=== PATIENT | female | born 1940 | race Caucasian/White ===

== ENCOUNTER 2016-12-16 21:35 | Inpatient (IN) | payer MEDICARE ==
[2016-12-17] MEDS ORDERED: Sodium Chloride 0.9% 1,000 ML IV SCH ×2 (00:56→02:30)
[2016-12-17] MEDS ORDERED: Ondansetron ODT 4 MG TAB SL PRN (00:56)
[2016-12-17] MEDS ORDERED: Ondansetron HCl/PF 4 MG/2 ML Vial IVP PRN (00:56)
[2016-12-17 01:01] VITALS: BMI 33.0
[2016-12-17] MEDS ORDERED: Acetaminophen 325 MG TAB PO PRN (02:21)
[2016-12-17] MEDS ORDERED: Ondansetron ODT 4 MG TAB PO PRN (02:21)
[2016-12-17] MEDS: Sodium Chloride 0.9% 1,000 ML IV SCH ×2 (02:42→13:20)
[2016-12-17] MEDS ORDERED: Milk Of Magnesia 30 ML UDCUP PO PRN (02:56)
[2016-12-17] MEDS ORDERED: diphenhydrAMINE 25 MG CAP PO PRN (02:56)
[2016-12-17] MEDS ORDERED: Oxybutynin ER 5 MG TAB PO PRN (03:07)
[2016-12-17 05:14] LABS: #Eosinphils 0.1 thou/uL (0.0-0.7); #Lymphocytes 1.5 thou/uL (1.20-3.40); #Monocytes 0.8 thou/uL (0.11-0.59); #Neutrophils 4.4 thou/uL (1.40-6.50); %Basophils 0.4 % (0.0-1.0); %Eosinophils 0.9 % (0.0-10.0); %Lymphocytes 22.6 % (21.0-51.0); %Monocytes 11.7 % (0.0-10.0); Hematocrit 35.7 % (36.0-47.0); Mean Platelet Volume 7.6 fL (7.4-10.4); Red Blood Cell (RBC) Count 3.93 mill/uL (4.20-5.40); White Blood Cell (WBC) Count 6.8 thou/uL (4.8-10.8)
[2016-12-17 05:40] LABS: Anion Gap 12 mmol/L (10-20); BUN (Urea Nitrogen) 9 mg/dL (9.8-20.1); Calc. Creatinine Clearance 86 mL/min (70-130); Calcium 8.8 mg/dL (7.8-10.44); Carbon Dioxide 22 mmol/L (23-31); Chloride 107 mmol/L (98-107); Estimated GFR-MDRD 90
[2016-12-17] MEDS ORDERED: Cipro 250 MG TAB PO SCH (06:00)
[2016-12-17] MEDS ORDERED: metroNIDAZOLE 500 MG in Premix Bag 1 BAG IVPB SCH (06:00)
[2016-12-17] MEDS ORDERED: metroNIDAZOLE 500 MG TAB PO SCH (09:00)
[2016-12-17] MEDS ORDERED: Oxybutynin ER 5 MG TAB PO SCH (09:00)
[2016-12-17] MEDS ORDERED: Aspirin 81 mg Enteric Coated Tablet PO SCH (09:00)
[2016-12-17] MEDS ORDERED: Famotidine/PF 20 mg/2ml Vial SLOW IVP SCH (09:00)
[2016-12-17] MEDS ORDERED: Amlodipine 5 mg/Benazepril 10 mg CAP PO SCH (09:00)
[2016-12-17] MEDS ORDERED: hydrALAZINE 25 MG TAB PO SCH (09:00)
[2016-12-17] MEDS ORDERED: Clopidogrel Bisulfate 75 MG TAB PO SCH (09:00)
[2016-12-17] MEDS ORDERED: FLU VACC TS2017-18 (>65YR) 0.5 ML SYRINGE IM ONE (09:00)
[2016-12-17] MEDS ORDERED: Triamterene/Hydrochlorothiazide 37.5 mg/25 mg Tablet PO SCH (09:00)
[2016-12-17 12:16] VITALS: BP 127/67; TEMP 97.9
--- NOTE | 2016-12-17 16:27 | DIS-2 ---
DATE OF ADMISSION: 12/16/2016 DATE OF DISCHARGE: 12/17/2016 ADMITTING RESIDENT: Rober Rodriguez DO DISCHARGE RESIDENT: Rosamaria Ortiz MD ADMITTING ATTENDING: Shaniqua Modi M.D. DISCHARGE ATTENDING: Shaniqua Modi M.D. CONSULTATIONS: None. PROCEDURES: None. PRIMARY DIAGNOSIS: Acute sigmoid diverticulitis. SECONDARY DIAGNOSES: 1. Hypertension. 2. Coronary artery disease status post 1 stent. 3. Osteoarthritis. 4. Peptic ulcer disease. DISCHARGE MEDICATIONS: 1. Amlodipine/benazepril 10 mg-20 mg 1 cap p.o. daily. 2. Aspirin 81 mg p.o. daily. 3. Atenolol 50 mg p.o. at bedtime. 4. Plavix 75 mg p.o. daily. 5. Oxybutynin ER 5 mg p.o. daily. 6. Esomeprazole 40 mg p.o. daily. 7. Triamterene/hydrochlorothiazide 37.5 mg-25 mg 1 cap p.o. daily. 8. Venlafaxine XR 75 mg p.o. at bedtime. 9. Hydralazine 25 mg p.o. t.i.d. 10. Ciprofloxacin 500 mg p.o. q. 12 hours for 7 days. 11. Diclofenac 50 mg p.o. daily. 12. Docusate 100 mg p.o. daily. 13. Fluticasone propionate 1 spray in each naris daily. 14. Hydraflexin 1 tab p.o. daily. 15. Magnesium hydroxide 400 mg p.o. p.r.n. 16. Benadryl 25 mg p.o. q.6 h. 17. Metronidazole 500 mg p.o. q.8 h. for 7 days. DISCONTINUED MEDICATIONS: None. HISTORY OF PRESENT ILLNESS AND HOSPITAL COURSE: This is a 76-year-old female who was admitted for acute sigmoid diverticulitis that was found on CT scan with no evidence of abscess. The patient was afebrile with no elevated white blood cell count and no signs of sepsis. She was started on fluids and clear liquids as well as Cipro and Flagyl and the patient responded very well to this. She was transferred from the [place] ED and admitted to our hospital and by the next morning, her pain had improved significantly and she was able to tolerate p.o. The patient was transitioned to p.o. antibiotics and discharged home with close outpatient followup. DISPOSITION: Stable. DISCHARGE INSTRUCTIONS: 1. Location: Home. 2. Diet: Advance as tolerated. 3. Activity: No restrictions. 4. Follow up with Dr. Velasquez within 7 days. JANELLE
--- NOTE | 2016-12-17 17:29 | ADD-HP ---
ADDENDUM DATE OF SERVICE: 12/17/2016 CHIEF COMPLAINT: Abdominal pain. HISTORY OF PRESENT ILLNESS: The patient is a 76-year-old female with past medical history of GERD, coronary artery disease, and hypertension, who presented to the [facility] ER with left lower quadrant abdominal pain for 2-3 days. The patient noted initially started after she ate. She denied nausea, vomiting, and diarrhea. The patient states that she did try over the counter N SAIDs for this pain, but it did not resolve and she presented to the ER last night. In the ER, she had a CT scan which showed sigmoid colon diverticulitis, no evidence of an abscess was noted as well as CT evidence of cholelithiasis, but no evidence of cholecystitis. The patient was started on IV Cipro and Flagyl. The patient has done quite well, this morning was sitting up on the side of her b ed and states her pain is much better and she feels breech. The patient will likely be discharged h ome with oral antibiotics. We will continue bland diet. I have reviewed Dr. Rodriguez's history and physical, and we have discussed the case together. I repea lilly pertinent portions of the history and physical and agree with his assessment and plan. Please s ee his dictation for the both history and physical, assessment and plan.
[2016-12-17] MEDS ORDERED: Venlafaxine HCl XR 75 MG CAP PO SCH (21:00)
[2016-12-17] MEDS ORDERED: Atenolol 50 MG TAB PO SCH (21:00)
--- NOTE | 2016-12-18 02:31 | HP-2 ---
DATE OF ADMISSION: 12/17/2016 DATE OF SERVICE: 12/17/2016 LOCATION: [facility] in [place], [place]. COSIGNER: Dr. Shaniqua Modi. CODE STATUS: FULL CODE. PRIMARY CARE PHYSICIAN: Out of town. ATTENDING PHYSICIAN: Dr. Shaniqua Modi. RESIDENT PHYSICIAN: Dr. Rober Rodriguez. HISTORIAN: Patient provided the history. CHIEF COMPLAINT: Abdominal pain. HISTORY OF PRESENT ILLNESS: The patient is a 76-year-old female with past medical history of hypert ension, coronary artery disease, status post stent x1, osteoarthritis and peptic ulcer disease, who presented to the ED with gradual onset lower abdominal pain. She reported sinus symptoms started We that have slowly worsened. She denies fever, chills, nausea, vomiting or diarrhea. Denies dark tarry stools. Denies hematochezia. Denies chest pain or shortness of breath. She does compla in of chronic constipation unchanged from baseline. She reports the last p.o. intake was the mornin g prior to arrival in the ED and she denies exacerbating or remitting factors. Her last colonoscopy was few years ago, which showed diverticular disease, but no evidence of acute diverticulitis and w as recommended to follow up as needed and no further scopes in the future unless needed. In the ER, the patient is given 1 liter of normal saline, Cipro IV and Flagyl IV. A CT was performed. PAST MEDICAL HISTORY: Hypertension; coronary artery disease, status post stent x1; osteoarthritis; and peptic ulcer disease. PAST SURGICAL HISTORY: The patient had a stent x1 in 2016, hemorrhoidectomy, lumpectomy x2, appende ctomy. ALLERGIES: PENICILLIN, SULFA, and BACTRIM. MEDICATIONS: Venlafaxine ER 75 mg, Plavix 75 mg, hydralazine 75 mg t.i.d., triamterene and hydrochl orothiazide 37.5/75, Benadryl 25 mg, esomeprazole 40 mg daily, amlodipine/benazepril 10/20 daily, ox ybutynin 10 mg ER daily, Colace 100 mg daily, Flonase 50 mcg daily, diclofenac 50 mg daily, atenolol 100 mg daily and aspirin 81 mg daily. FAMILY HISTORY: Positive family history of breast cancer in patient's sister; coronary artery disea se, patient's sister; prostate cancer, brother and then lymphoma both her sister and mother. SOCIAL HISTORY: Patient is a nonsmoker, nondrinker. Denies Drugs. REVIEW OF SYSTEMS: General: Patient denies fever or chills. Reports decreased p.o. intake. Denie s night sweats. ENT: Denies nasal congestion, rhinorrhea, or sore throat. Respiratory: Denies cough, congestion, shortness of breath. Cardiovascular: Denies chest pain or palpitations. Gastrointestinal: Denies nausea, vomiting, diarrhea, constipati on, and GI bleeding. Patient complains of abdominal pain. Musculoskeletal: Patient complains of s welling, unchanged from baseline. PHYSICAL EXAMINATION: VITAL SIGNS: Blood pressure 176/74, pulse 70 beats per minute, respirations 18 breaths per minute, T-max 97.9, pulse ox 97% on room air, current weight 75 kilograms. GENERAL: The patient is alert and oriented, in no acute distress. Well-developed, appropriately in teractive. EYES: Pupils are equal, round and reactive to light and accommodation. Extraocular muscles are int act. Conjunctivae within normal limits. ENT: Oropharynx within normal limits. NECK: Supple, without lymphadenopathy, no thyromegaly. CARDIOVASCULAR: Regular rate and rhythm. A 2-3/6 systolic ejection murmur, no gallops. Radial pul ses 2+. Pedal pulses 2+. RESPIRATORY: Normal effort, no retractions. LUNGS: Clear to auscultation bilaterally. SKIN: Warm and dry. No cyanosis. ABDOMEN: Soft, tender to palpation of the left lower quadrant and right lower quadrant as well as s uprapubic tenderness. No masses, distention or organomegaly were appreciated. Abdomen had normal t ympany. EXTREMITIES: No clubbing, no cyanosis. The patient has 1+ bilateral lower extremity pitting edema. MUSCULOSKELETAL: Structures within normal limits. Tone within normal limits. NEURO: No focal deficits. LABORATORY DATA: White blood cell 10, hemoglobin 13, hematocrit 40.4, platelets 171. Sodium 137, p otassium 4, chloride 104, bicarb 23, BUN 11, creatinine 0.79, glucose 134, calcium 9.6, total protei n 7.6, albumin 4.2, AST 20, ALT 22, alkaline phosphatase 72, total bilirubin 0.7, lactic acid 0.7. CK 64, CK-MB 1.5, troponin I less than 0.010. Urinalysis showed a moderate amount of leukocyte galo rase and 4 to 6 white blood cells, was otherwise negative. EKG showed normal sinus rhythm, left axis deviation. IMAGING: CT abdomen and pelvis showed sigmoid colon diverticulitis with area of phlegmon adjacent t o the sigmoid. ASSESSMENT AND PLAN: 1. Sigmoid diverticulitis, uncomplicated. Patient will be given IV fluid normal saline at 125 mL p er hour. Started on IV Cipro 400 mg q.12 hours, as well as Flagyl IV 500 mg t.i.d. and will be n.p. o. for now with advance her diet to clear liquids in the morning and further advancement of her diet as tolerated. 2. Hypertension. Resume home medications. 3. Coronary artery disease. Continue aspirin and Plavix. 4. Peptic ulcer disease. Patient will be placed on IV Pepcid while n.p.o. and not tolerating oral medications. Once her diet is advanced, we will switch to her regular p.o. medication. DISPOSITION AND LENGTH OF HOSPITAL STAY: Greater than or equal to 2 days. Patient is stable. Symptomatic medication will be provided. History and physical exam as well as management was discussed with Dr. Shaniqua Modi, who agrees with the above history and physical exam, assessment and plan unless otherwise noted in her addendu m
== END 2016-12-17 13:26 | disposition home or self-care (01) | DRG 392 ==
LOC: ERS 21:35 → T4-A 23:00
PROVIDERS: ADMIT Family Medicine; ATTEND Family Medicine
DX: K57.32 Diverticulitis of large intestine without perforation or abscess without bleeding (principal); K27.9 Peptic ulcer, site unspecified, unspecified as acute or chronic, without hemorrhage or perforation; I10 Essential (primary) hypertension; I25.10 Atherosclerotic heart disease of native coronary artery without angina pectoris; Z95.5 Presence of coronary angioplasty implant and graft; M19.90 Unspecified osteoarthritis, unspecified site; K59.09 Other constipation; Z88.1 Allergy status to other antibiotic agents; Z88.0 Allergy status to penicillin; Z88.2 Allergy status to sulfonamides; Z79.01 Long term (current) use of anticoagulants; Z79.82 Long term (current) use of aspirin; K21.9 Gastro-esophageal reflux disease without esophagitis; F41.9 Anxiety disorder, unspecified
CPT/HCPCS: 36415; 80048; 85025; 99285; J0744

== ENCOUNTER 2017-01-09 10:18 | Outpatient (CLI) | payer MEDICARE ==
--- NOTE | 2017-01-09 13:33 | RAD ---
FOUR VIEWS LUMBAR SPINE: 01/09/2017 HISTORY: Spinal stenosis of the lumbar region. The patient states she fell twice in her 70s. The patient has had chronic back pain for years and is now having back pain radiating into the right hip for about o ne month. FINDINGS: Based on lateral images, there do appear to be five [id number] lumbar type vertebral bodies. Ve rtebral body heights are within normal limits. There is mild narrowing of the L4-L5 intervertebral d isk space. Facet degenerative changes are seen in the lower lumbar spine. On the frontal radiograph , there is suggestion of slight left lateral subluxation of L4 on L5. There is no evidence of anter olisthesis. Dense vascular calcifications are seen in the abdominal aorta and iliac arteries. IMPRESSION: 1. Mild degenerative changes in the lumbar spine, but no fracture is present on the provided images. 2. Slight left lateral subluxation of L4 on L5. 3. Dense vascular calcifications. POS: [facility]
--- NOTE | 2017-01-09 13:33 | MRI ---
MRI LUMBAR SPINE WITHOUT CONTRAST: Date: 01/09/17 HISTORY: M48.062, spinal stenosis. Chronic back pain. COMPARISON: Lumbar spine MRI from 2014. FINDINGS: The aortic contour is nonaneurysmal. No retroperitoneal adenopathy. Visualized portions of the kidney s are unremarkable. No paraspinal musculature atrophy. Background marrow signal is normal. Levels are as follows: T12-L1: Normal disc space. No significant neural foraminal or spinal canal narrowing. L1-2: Normal disc space. No significant neural foraminal or spinal canal narrowing. L2-3: Mild degenerative disc space height loss. Circumferential disc bulge. Spinal canal is not narrowed. T here is mild bilateral neural foraminal narrowing. L3-4: Moderate degenerative disc space height loss. Circumferential disc bulge. Moderate facet arthropathy. There is moderate bilateral neural foraminal narrowing. Moderate facet arthrosis. The spinal canal i s narrowed to approximately 7.0 mm. L4-5: Moderate degenerative disc space height and circumferential disc bulge. Ligamentum flavum hypertrophy . Moderate facet arthropathy. The spinal canal measures approximately 6.0 mm. L5-S1: Mild degenerative disc space height loss. Moderate facet arthropathy. There is moderate left and mild right neural foraminal narrowing. IMPRESSION: 1. Spondylosis as described above. 2. No acute fracture or malalignment. 3. Spondylosis, worse from L3-L5. POS: [facility]
== END 2017-01-09 10:19 | disposition home or self-care (01) ==
LOC: SCSMRI 10:18
PROVIDERS: ATTEND Nurse Practitioner Family
DX: M48.062 Spinal stenosis, lumbar region with neurogenic claudication (principal); M47.896 Other spondylosis, lumbar region; M51.86 Other intervertebral disc disorders, lumbar region; M99.13 Subluxation complex (vertebral) of lumbar region
CPT/HCPCS: 72110; 72148

== ENCOUNTER 2018-06-22 11:07 | Outpatient (CLI) | payer MEDICARE ==
--- NOTE | 2018-06-22 12:08 | RAD ---
3 views lumbar spine HISTORY: Severe back pain. Lateral, flexion and extension views lumbar spine. 3 views lumbar spine demonstrate osteopenia. Athetotic calcination seen in the abdominal aorta. There is minimal anterolisthesis of L4 on L5. This does not significantly change on flexion or extens ion views. No evidence of acute fracture seen. IMPRESSION: Minimal anterolisthesis of L4 on L5. No other acute abnormality seen.
--- NOTE | 2018-06-22 13:26 | MRI ---
MRI LUMBAR SPINE: HISTORY: Neurogenic claudication. Lumbar radiculitis. Chronic back pain. COMPARISON: MRI lumbar spine, dated 01/09/2017. FINDINGS: Vertebral body heights and marrow signal are maintained. The conus medullaris ends at the L1 level. Minimal anterolisthesis of L4/L5 is again seen. The paraspinal musculature is unremarkable. There is disk desiccation in the lower lumbar spine. T12-L1: No focal disk herniation or significant neural foraminal or spinal canal stenosis is seen. L1-L2: No disk herniation, central canal stenosis, or neural foraminal stenosis. L2-L3: A broad-based disk bulge is present with mild bilateral neural foraminal stenosis. No centra l canal stenosis. L3-L4: Broad-based disk bulge with moderate bilateral facet hypertrophic changes. There is mild rig ht and moderate left neural foraminal stenosis. There is mild to moderate central canal stenosis. L4-L5: Broad-based disk bulge with bilateral facet and ligamentum flavum hypertrophy. There is mild to moderate bilateral neural foraminal stenosis and moderate to severe central canal stenosis. L5-S1: No focal disk herniation or central canal stenosis. Bilateral facet hypertrophic changes wit h mild to moderate bilateral neural foraminal stenosis. IMPRESSION: Lumbar spondylosis with multilevel neural foraminal and central canal stenosis. POS: [facility]
== END 2018-06-22 11:08 | disposition home or self-care (01) ==
LOC: SCSMRI 11:07
PROVIDERS: ATTEND Neurological Surgery
DX: M48.062 Spinal stenosis, lumbar region with neurogenic claudication (principal); M47.26 Other spondylosis with radiculopathy, lumbar region; M43.16 Spondylolisthesis, lumbar region
CPT/HCPCS: 72100; 72148

== ENCOUNTER 2018-06-28 14:44 | Observation (INO) | payer MEDICARE ==
[~2018-06-28 14:44] MED LIST: ISOVUE-370 76%-LOCM 1 ML ONE
[2018-06-28 15:34] LABS: #Lymphocytes 0.8 thou/uL (1.20-3.40); #Monocytes 0.8 thou/uL (0.11-0.59); #Neutrophils 11.6 thou/uL (1.40-6.50); %Basophils 0.2 % (0.0-1.0); %Eosinophils 0.1 % (0.0-10.0); %Lymphocytes 5.8 % (21.0-51.0); %Monocytes 5.7 % (0.0-10.0); %Neutrophils 88.1 % (42.0-75.0); Hemoglobin 13.6 g/dL (12.0-16.0); Mean Corpuscular HGB CONC 33.2 g/dL (32.0-36.0); Mean Corpuscular Hemoglobin 30.1 pg (27.0-31.0); Mean Corpuscular Volume 90.5 fL (78.0-98.0); Mean Platelet Volume 7.7 fL (7.4-10.4); Platelet Count 194 thou/uL (130-400); RBC Distribution Width 11.9 % (11.5-14.5); Red Blood Cell (RBC) Count 4.51 mill/uL (4.20-5.40); White Blood Cell (WBC) Count 13.2 thou/uL (4.8-10.8)
[2018-06-28 15:52] LABS: ALT (SGPT) 17 U/L (8-55); AST (SGOT) 21 U/L (5-34); Albumin 4.2 g/dL (3.4-4.8); Alkaline Phosphatase 61 U/L (40-150); Anion Gap 14 mmol/L (10-20); BUN (Urea Nitrogen) 18 mg/dL (9.8-20.1); Bilirubin, Total 0.6 mg/dL (0.2-1.2); Calc. Creatinine Clearance 0 mL/min (70-130); Calcium 9.9 mg/dL (7.8-10.44); Carbon Dioxide 25 mmol/L (23-31); Chloride 105 mmol/L (98-107); Estimated GFR-MDRD 61; Globulin 2.7 g/dL (2.4-3.5); Glucose 152 mg/dL (83-110); Potassium 4.4 mmol/L (3.5-5.1); Protein, Total 6.9 g/dL (6.0-8.3); Sodium 140 mmol/L (136-145)
[2018-06-28 15:54] LABS: PTT 25.1 SEC (22.9-36.1); Prothrombin Time 13.7 SEC (12.0-14.7)
--- NOTE | 2018-06-28 16:46 | CT ---
CT abdomen and pelvis with IV contrast. Oral contrast was not administered. INDICATIONS: Abdominal pain. Rectal bleeding. COMPARISON: 12/16/2016 FINDINGS: Lung bases are clear Liver, spleen, and pancreas appear unremarkable. Numerous gallstones are seen layering dependently in the gallbladder. Stomach and duodenum appear unremarkable. Adrenal glands appear normal. Kidneys appear unremarkable. Collecting structures and urinary bladder appear unremarkable. Small bowel loops are normal caliber and exhibit normal fold pattern. Appendix not identified. Right colon is nondistended poorly evaluated. There is abnormal mural thickening involving the transv erse colon and left colon with surrounding inflammatory change and indicating a diffuse colitis. There is diverticulosis of the sigmoid colon. No evidence of diverticular abscess or fluid collection . Aorta is normal caliber. No evidence of retroperitoneal or mesenteric adenopathy. A rounded low-density masslike density extending from the uterine fundus suggests an exophytic Centra l necrotic fibroid. This is a stable finding. Subcutaneous tissues, abdominal wall, and muscular structures appear unremarkable. Osseous structures appear unremarkable. IMPRESSION: 1. Diffuse mural thickening and surrounding inflammatory change involving the transverse colon and le ft colon. Findings indicate a diffuse colitis. There is diverticulosis of the sigmoid colon without evidence of diverticular abscess or extraluminal luminal gas. 2. Cholelithiasis is again noted 3. Exophytic necrotic fibroid from the uterine fundus again noted
[2018-06-28] MEDS ORDERED: metroNIDAZOLE 500 MG in Premix Bag 1 BAG IVPB SCH (17:30)
--- NOTE | 2018-06-28 19:00 | PDOC.FPRHP ---
- History of Present Illness Chief Complaint: rectal bleeding, abdominal pain History of Present Illness: This is a 77 yo F presenting to the ER with a CC of bright red blood per rectum that started earlier today. She states that the character of her stool was like "strawberry paste." She states that she has had diarrhea, but has had long standing constipation. She reports severe abdominal pain today that has been intermittent. Nothing makes it better or worse. She describes the pain as sharp and feels like "when you take too much laxative and it starts to cramp." She states that pain is diffuse and not worse in one area more than another. She reports about 3-4 episodes of nausea and vomiting throughout the day. She reports cough that is productive of green/yellow sputum for the past week. She reports fever/chills throughout the day as well. Denies any urinary complaints. No previous hx of GI issues besides chronic constipation. Patient had a colonoscopy performed about 7 yrs ago that was normal to her knowledge. Niece present at the bedside - the patient has a son who she is estranged from. She stated that she "nominates" the niece to be her MPOA. ED Course: Flagyl 500mg IV - Allergies/Adverse Reactions Allergies Allergy/AdvReac Type Severity Reaction Status Date / Time miconazole nitrate Allergy Verified 06/28/18 19:27 [From Neosporin AF] Penicillins Allergy Verified 06/28/18 19:27 Sulfa (Sulfonamide Allergy Verified 06/28/18 19:27 Antibiotics) sulfamethoxazole Allergy Verified 06/28/18 19:27 [From Bactrim] trimethoprim [From Bactrim] Allergy Verified 06/28/18 19:27 - Home Medications Medication Instructions Recorded Confirmed Type Amlodipine Besylate/Benazepril 1 cap PO DAILY 11/11/13 06/28/18 History [amLODIPine Besylate/Benazepril] Atenolol 50 mg PO DAILY 11/11/13 06/28/18 History Clopidogrel Bisulfate [Plavix] 75 mg PO DAILY 11/11/13 06/28/18 History Esomeprazole Magnesium [NexIUM] 40 mg PO DAILY 11/11/13 06/28/18 History hydrALAZINE HCl 25 mg PO BID 11/11/13 06/28/[address] [Voltaren] 50 mg PO DAILY 12/17/16 06/28/18 History Oxybutynin ER [Ditropan XL] 10 mg PO DAILY 12/17/16 06/28/18 History Triamterene/Hydrochlorothiazid 1 cap PO DAILY PRN 12/17/16 06/28/18 History [Triamterene-Hctz 37.5-25 mg Cp] diphenhydrAMINE [Benadryl] 25 mg PO Q6HR PRN 12/17/16 06/28/18 History Famotidine 40 mg PO DAILY 06/28/18 06/28/18 History Simvastatin [Zocor] 20 mg PO QPM 06/28/18 06/28/18 History Dicyclomine [Bentyl] 10 mg PO Q6H PRN #60 cap 07/01/18 Rx - History PMHx: HTN, HLD, arthritis, b/l hearing aids, CAD s/p stent, GERD, "heart arrythmia" - she states possibly atrial flutter PSHx: stent placement about 3 yrs ago (1), carpal tunnel surgery on left, appendectomy FHx: Mother of IA, father - cancer (unknown), sister - throat cancer Social: former smoker - quit over 30 yrs ago, smoked about 1/2pack/day for 10- 15 yrs; occasional alcohol use, denies drug use - Review of Systems General: reports: fever/chills, weight/appetite/sleep changes, fatigue ENT: denies: nasal congestion, rhinorrhea Respiratory: reports: cough. denies: congestion, shortness of breath Cardiovascular: denies: chest pain, palpitation, edema Gastrointestinal: reports: nausea, vomiting, diarrhea, constipation, abdominal pain, GI bleeding Genitourinary: denies: dysuria Skin: denies: rashes, lesions, itching Musculoskeletal: denies: pain, tenderness, stiffness, swelling Neurological: reports: weakness. denies: numbness Psychological: reports: anxiety, depression - Vital signs BP: 172/89, Pulse: 68, Resp: 18, Temp: 97.9 (Oral), Pain: 9, O2 sat: 97 on Room Air, Time: 06/28/2018 14:49 WEIGHT: 73kg BP: 174/70, Pulse: 74, Resp: 20, Temp: 98.6 (Oral), Pain: 8, O2 sat: 95 on Room Air, Time: 06/28/2018 18:00. - Physical Exam Constitutional: NAD, awake, alert and oriented, well developed HEENT: normocephalic and atraumatic, PERRLA, EOMI, grossly normal vision, grossly normal hearing, good dention -HEENT: dry MM Neck: supple, FROM, trachea midline Chest: no-tender to palpation, no lesions Heart: RRR, normal S1/S2, no murmurs/rubs/gallops, pulses present Lungs: CTAB, no respiratory distress, good air movement, no wheezing Abdomen: soft -Abdomen: TTP diffusely, BS hypoactive, rebound tenderness, no peritoneal signs, guarding present Musculoskeletal: normal structure, normal tone, ROM grossly normal Neurological: no focal deficit Skin: no rash/lesions -Skin: cap refill > 2sec Heme/Lymphatic: no unusual bruising or bleeding, no purpura, no petechia Psychiatric: normal mood and affect FMR H&P: Results - Labs Result Diagrams: 07/01/18 04:43 06/29/18 04:20 Lab results: WBC 13.2 thou/uL (4.8-10.8) H 06/28/18 15:24 Hgb 13.6 g/dL (12.0-16.0) 06/28/18 15:24 Hct 40.8 % (36.0-47.0) 06/28/18 15:24 MCV 90.5 fL (78.0-98.0) 06/28/18 15:24 Plt Count 194 thou/uL (130-400) 06/28/18 15:24 Neutrophils % 88.1 % (42.0-75.0) H 06/28/18 15:24 Sodium 140 mmol/L (136-145) 06/28/18 15:23 Potassium 4.4 mmol/L (3.5-5.1) 06/28/18 15:23 Chloride 105 mmol/L (98-107) 06/28/18 15:23 Carbon Dioxide 25 mmol/L (23-31) 06/28/18 15:23 BUN 18 mg/dL (9.8-20.1) 06/28/18 15:23 Creatinine 0.89 mg/dL (0.6-1.1) 06/28/18 15:23 Glucose 152 mg/dL (83-110) H 06/28/18 15:23 Calcium 9.9 mg/dL (7.8-10.44) 06/28/18 15:23 Total Bilirubin 0.6 mg/dL (0.2-1.2) 06/28/18 15:23 AST 21 U/L (5-34) 06/28/18 15:23 ALT 17 U/L (8-55) 06/28/18 15:23 Alkaline Phosphatase 61 U/L (40-150) 06/28/18 15:23 Serum Total Protein 6.9 g/dL (6.0-8.3) 06/28/18 15:23 Albumin 4.2 g/dL (3.4-4.8) 06/28/18 15:23 - Radiology Interpretation CT scan - abdomen Status: report reviewed by me (diffuse colitis, diverticulosis of sigmoid, cholelithiasis, exophytic necrotic fibroid from uterine fundus) FMR H&P: A/P - Problem List (1) Colitis Status: Acute Code(s): K52.9 - NONINFECTIVE GASTROENTERITIS AND COLITIS, UNSPECIFIED (2) Diverticulitis Status: Chronic Code(s): K57.92 - DVTRCLI OF INTEST, PART UNSP, W/O PERF OR ABSCESS W/O BLEED (3) Hypertension Status: Chronic Code(s): I10 - ESSENTIAL (PRIMARY) HYPERTENSION (4) Hyperlipidemia Status: Chronic Code(s): E78.5 - HYPERLIPIDEMIA, UNSPECIFIED - Plan Colitis associated w/ diarrhea Patient presenting w/ 1 day of sharp abdominal pain, diarrhea, bloody BMs. CT showing diffuse colitis. - WBC 13.2, BP elevated, afebrile - CT: diffuse colitis, diverticulosis of sigmoid - Will continue flagyl, add cipro - Clear liquid and advance diet as tolerated - Stool studies pending Mild Dehydration - clinically patient has dry MM and cap refill > 2 sec - Will give mIVF HTN - home meds, PRNs available HLD - home meds GERD - home meds Dispo: admit to med obs, < 2 midnights Code: FuLL DVT ppx: SCDs GI ppx: pepcid Diet: clear liquid and advance as tolerated Case discussed with Dr. Oates FMR H&P: Upper Level - Pertinent history 77 yo WF PMH CAD, HTN, and known sigmoid diverticulosis. Present with 1 day hx lower abdominal pain, subjective fever/chills, diarrhea and BRBPR that started this morning. Denies recent travel or new foods. Unsure of urinary symptoms. Reports decreased PO intake. No recent abx. ER: Labs, CT abd/pelvis, flagyl. - Pertinent findings Vitals: BP mildly elevated, otherwise WNL GEN: mild to moderate pain. A&Ox4 ENT: Dry MM CV: RRR, no murmur Pulm: CTA-B Abd: TTP lower abdomen, rebound in RLQ, negative heel tap. labs: WBC 13.2 CT abdomen and pelvis: colitis, diverticulosis, EKG: Rate WNL, LBBB, PAC, no ST changes - Plan Date/Time: 06/28/18 185 I, Demetri Edge MD, have evaluated this patient and agree with findings/plan as outlined by legal intern resident. Pertinent changes/additions are listed here. 1. Presumed Infectious Colitis: check stool studies, since having BRBPR will empirically treat with flagyl and cipro and adjust coverage once resulted. IV LR at 125 mL/hr. PRN pain medications available. 2. LBBB: Cath in 2013 show occlusion that was unable to be stented. I assume this is an old issue but will have nursing get prior EKG to compare. 3. Chronic problems per legal intern note Diet: Clear liquid and advance as tolerated. CODE: FULL PPx: SCD Dispo: Obs, Medical, <[address] Oates. Addendum - Attending - Attending Attestation Date/Time: 07/02/18 0805 I personally evaluated the patient and discussed the management with Dr. Delgado on day of admission. I agree with the History, Examination, Assessment and Plan documented above with any addition or exceptions noted below.
[2018-06-28] MEDS ORDERED: Acetaminophen 325 MG TAB PO PRN (19:14)
[2018-06-28] MEDS ORDERED: Ondansetron PF 4 MG/2 ML Vial IVP PRN (19:14)
[2018-06-28] MEDS ORDERED: Ondansetron ODT 4 MG TAB PO PRN (19:14)
[2018-06-28 19:46] VITALS: BMI 32.7
[2018-06-28] MEDS ORDERED: diphenhydrAMINE 25 MG CAP PO PRN (20:08)
[2018-06-28] MEDS: Lactated Ringer's 1,000 ML IV SCH (20:16)
[2018-06-28] MEDS ORDERED: traMADol HCl 50 MG TAB PO PRN (20:17)
[2018-06-28] MEDS: Simvastatin 20 MG TAB PO SCH (22:15)
[2018-06-28] MEDS: hydrALAZINE 25 MG TAB PO SCH (22:15)
[2018-06-28] MEDS ORDERED: hydrALAZINE 20 MG/ML VIAL SLOW IVP PRN (22:15)
[2018-06-28] MEDS: Mirtazapine 30 MG Soltab PO SCH (22:15)
[2018-06-28 22:37] LABS: Bilirubin Negative (Negative); Blood, Urine Negative (Negative); Clarity CLEAR (Clear); Glucose, Urine (Dipstick) Negative (Negative); Leukocyte Negative (Negative); Nitrite Negative (Negative); Protein, Urine (Dipstick) 30 mg/dL (Neg-Trace); Urobilinogen 0.2 mg/dL (0.2-1.0)
[2018-06-28 22:42] LABS: Bacteria/HPF None Seen HPF (None Seen); Hyaline Casts/LPF 0-3 HYALINE CAST LPF (0-3 Hyaline); Pathc Cast-AUWi Flag 0.27 (0-2.49)
[2018-06-28 22:43] LABS: Specific Gravity, Urine Greater than 1.060 (1.002-1.036)
[2018-06-29] MEDS ORDERED: metroNIDAZOLE 250 MG in Admixture Fee 2 EACH IVPB SCH (01:30)
[2018-06-29] MEDS ORDERED: metroNIDAZOLE 250 MG TAB PO SCH ×2 (01:30→09:00)
[2018-06-29] MEDS: metroNIDAZOLE 250 MG in Admixture Fee 1 EACH IVPB SCH ×3 (02:10→17:17)
[2018-06-29 05:43] LABS: #Lymphocytes 1.3 thou/uL (1.20-3.40); #Monocytes 1.1 thou/uL (0.11-0.59); #Neutrophils 10.5 thou/uL (1.40-6.50); %Basophils 0.1 % (0.0-1.0); %Eosinophils 0.1 % (0.0-10.0); %Lymphocytes 9.7 % (21.0-51.0); %Monocytes 8.8 % (0.0-10.0); %Neutrophils 81.3 % (42.0-75.0); Hemoglobin 11.9 g/dL (12.0-16.0); Mean Corpuscular HGB CONC 33.2 g/dL (32.0-36.0); Mean Corpuscular Hemoglobin 30.5 pg (27.0-31.0); Mean Corpuscular Volume 91.7 fL (78.0-98.0); Mean Platelet Volume 8.2 fL (7.4-10.4); Platelet Count 163 thou/uL (130-400); RBC Distribution Width 12.1 % (11.5-14.5); White Blood Cell (WBC) Count 12.9 thou/uL (4.8-10.8)
[2018-06-29] MEDS: Lactated Ringer's 1,000 ML IV SCH ×2 (05:54→16:15)
[2018-06-29 06:01] LABS: Anion Gap 13 mmol/L (10-20); BUN (Urea Nitrogen) 16 mg/dL (9.8-20.1); Calc. Creatinine Clearance 75 mL/min (70-130); Calcium 9.1 mg/dL (7.8-10.44); Carbon Dioxide 23 mmol/L (23-31); Chloride 106 mmol/L (98-107); Estimated GFR-MDRD 78; Glucose 117 mg/dL (83-110); Potassium 4.2 mmol/L (3.5-5.1); Sodium 138 mmol/L (136-145)
--- NOTE | 2018-06-29 06:12 | PDOC.FM ---
- Subjective Subjective: Pt states she is doing better this morning. She has no complaints at this time. She denies CP, SOB, nausea, or diarrhea this morning. She reports 1 BM overnight. - Objective MAR Reviewed: Yes Vital Signs & Weight: Vital Signs (12 hours) Temp Pulse Resp BP BP Pulse Ox 06/29/18 04:15 98.4 F 73 16 142/67 H 93 L 06/28/18 23:25 98.4 F 53 L 16 109/51 L 92 L 06/28/18 22:15 76 06/28/18 19:07 98.0 F 76 18 176/73 H 95 Weight Weight 73.437 kg I&O: 06/27/18 06/28/18 06/29/18 06:59 06:59 06:59 Intake Total 1540 Output Total 325 Balance 1215 Result Diagrams: 06/29/18 04:20 06/29/18 04:20 Phys Exam - Physical Examination Constitutional: NAD HEENT: moist MMs Neck: no JVD, full ROM Respiratory: no wheezing, clear to auscultation bilateral Cardiovascular: RRR, no significant murmur Gastrointestinal: soft, non-tender, no distention Musculoskeletal: no edema, pulses present Neurological: moves all 4 limbs Psychiatric: A&O x 3 Skin: cap refill <2 seconds Dx/Plan (1) Colitis Code(s): K52.9 - NONINFECTIVE GASTROENTERITIS AND COLITIS, UNSPECIFIED Status : Acute (2) Hyperlipidemia Code(s): E78.5 - HYPERLIPIDEMIA, UNSPECIFIED Status: Acute (3) Hypertension Code(s): I10 - ESSENTIAL (PRIMARY) HYPERTENSION Status: Acute - Plan Plan: This is a 77 yo female with a pmh of HTN, HLD Colitis with diarrhea -CT shows diffuse colitis -Flagyl and Cipro -Pending stool studies -Advance diet -Consider DC pending clinical picture Mild dehydration -Resolved HTN -continue home meds HLD -home meds GERD -home meds Addendum - Attending - Attending Attestation Date/Time: 06/29/18 1105 I personally evaluated the patient and discussed the management with Dr. Yi. I agree with the History, Examination, Assessment and Plan documented above with any addition or exceptions noted below. Patient reports doing improved. She did have some cramping earlier before a bowel movement that has now resolved. Will advance diet and see how she tolerates. Stool studies pending, low suspicion for Cdiff since not liquid stool but that is also pending. If tolerates diet, can likely be further managed as outpatient but will re-eval this PM.
[2018-06-29] MEDS ORDERED: Famotidine 20 MG TAB PO SCH (09:00)
[2018-06-29] MEDS ORDERED: Pantoprazole 40 MG VIAL IVP SCH (09:00)
[2018-06-29] MEDS: Atenolol 25 MG TAB PO SCH (09:15)
[2018-06-29] MEDS: Diclofenac Sodium 50 MG DR TAB PO SCH (09:15)
[2018-06-29] MEDS: hydrALAZINE 25 MG TAB PO SCH ×2 (09:16→20:45)
[2018-06-29] MEDS: Amlodipine 10 MG TAB PO SCH (09:16)
[2018-06-29] MEDS: Oxybutynin ER 5 MG TAB PO SCH (09:16)
--- NOTE | 2018-06-29 14:58 | CON ---
DATE OF CONSULTATION: 06/29/2018 REASON FOR CONSULTATION: Colitis and lower GI bleeding. HISTORY OF PRESENT ILLNESS: Jacy Solomon is a very pleasant 77-year-old woman. She normally sees Dr. Orosco for GI. She reports having had a colonoscopy 5 to 7 years ago, which she believes was normal. It looks like she has a history of peptic ulcer disease with last EGD with Dr. Orosco back in 2011. She denies any chronic gastrointestinal symptoms. She was in her normal state of health until yesterday morning. At that time, she had the fairly acute onset of lower and then generalized cramping abdominal pain this started to localize more to the left side. This was followed by sudden urgent explosive watery diarrhea. The diarrhea was initially nonbloody, but after several bowel movements, she started to have red blood in the stool. After several episodes of hematochezia and overall feeling weak, she presented to the hospital and was admitted last night. The CT imaging demonstrated inflammatory changes in the transverse colon and left colon, some diverticulosis with no evidence of diverticulitis in the sigmoid colon, and nondistention of the right colon. Hemoglobin declined a little bit from 13.6 on admission down to 11.9 today. She has a mild leukocytosis of 12.9. She has remained afebrile and hemodynamically stable. She was started empirically on antibiotics with IV ciprofloxacin and Flagyl. Stool studies have been ordered, but I am not sure that they have been sent. This morning, the patient has had only a single bowel movement. She reports this was more solid and still a bit reddish, but she flush it prior to stool being collected for evaluation. She is still having some cramping left-sided abdominal pain. They are trying to slowly advance her diet. Notably, the patient takes diclofenac every morning for her arthritis. She is also on some antihypertensive as an outpatient including amlodipine, hydralazine, and triamterene/hydrochlorothiazide. REVIEW OF SYSTEMS: Full review of systems including constitutional, head, eyes, ears, nose, throat, GI, , cardiovascular, respiratory, musculoskeletal, and neurologic systems are negative except as noted in the HPI. PAST MEDICAL HISTORY: Hypertension, hyperlipidemia, arthritis, bilateral hearing aids, coronary artery disease status post stent on Plavix, GERD, arrhythmia, carpal tunnel surgery on the left, appendectomy, colonoscopy 5 to 7 years ago, and peptic ulcer disease with last EGD around 2011. FAMILY HISTORY: Sister had throat cancer. Father had unknown cancer. SOCIAL HISTORY: She is a former smoker, but quit over 30 years ago. Alcohol use is occasional. No drug use. ALLERGIES: MICONAZOLE, PENICILLIN, SULFA, AND TRIMETHOPRIM. HOME MEDICATIONS: 1. Amlodipine. 2. Atenolol. 3. Plavix. 4. Nexium 40 mg daily. 5. Hydralazine. 6. Diclofenac 50 mg daily. 7. Oxybutynin. 8. Triamterene/hydrochlorothiazide. 9. Benadryl. 10. Famotidine 40 mg daily. 11. Mirtazapine. 12. Simvastatin. INPATIENT MEDICATIONS: 1. Amlodipine. 2. Atenolol. 3. Benazepril. 4. Ciprofloxacin IV. 5. Hydralazine 25 mg b.i.d. 6. Metronidazole 250 mg IV q.8 hours. 7. Remeron. 8. Oxybutynin. 9. Protonix 40 mg daily. 10. Zocor. 11. Tramadol. PHYSICAL EXAMINATION: VITAL SIGNS: Temperature 99.2, pulse 66, blood pressure 102/46, and 92% oxygen saturation on room air. GENERAL: No acute distress, lying in bed comfortably. SKIN: No jaundice. No rashes were palpable. EYES: No scleral icterus. Extraocular movements intact. ENT: Mucous membranes moist. No oral lesions. LYMPH: No submandibular or supraclavicular lymphadenopathy. Thyroid nontender to palpation. HEART: Regular rate and rhythm. LUNGS: Clear to auscultation bilaterally. ABDOMEN: Bowel sounds are present. The abdomen is soft. There is tenderness to palpation on the left side of the abdomen. No guarding or rebound tenderness. EXTREMITIES: No peripheral edema. VESSELS: Radial pulses 2+ bilaterally. NEURO: Cranial nerves 2 to 12 intact bilaterally. No focal deficits. LABORATORY STUDIES: Sodium 138, potassium 4.2, BUN 16, and creatinine 0.72. Urinalysis shows 11 to 20 wbc's. INR 1.0. WBC 12.9, hemoglobin 11.9, and platelets 163. IMAGING STUDIES: CT of the abdomen and pelvis from yesterday demonstrates diffuse mural thickening and inflammatory change involving the transverse colon in the left colon. There is diverticulosis of the sigmoid colon with no evidence of diverticulitis. She has cholelithiasis and an exophytic necrotic fibroid from the uterine fundus, which is stable from prior imaging. Normal small bowel loops. Normal stomach. She has cholelithiasis. Normal liver and spleen. ASSESSMENT AND PLAN: 1. Left-sided colitis, suspect ischemic colitis, appears to be clinically improving already. 2. Hematochezia, secondary to left-sided colitis. 3. Left-sided abdominal pain, secondary to left-sided colitis. The patient's presentation certainly seems most consistent with an episode of acute ischemic colitis. Note that, she had minimal oral intake the day before, and has risk factors of daily nonsteroidal anti-inflammatory drug use as well as antihypertensive medication use. I had a long discussion with the patient about ischemic colitis. I would expect symptoms to quickly improve and in fact resolve over the next 5 to 7 days. Agree infectious colitis is a possibility, so followup stool studies that been ordered. Agree with empiric antimicrobial treatment for now, but I think this can be discontinued on hospital discharge. If the patient is feeling up to it, she can indeed advance her diet as tolerated, and no barriers to hospital discharge once the symptoms are well controlled and she is tolerating her diet. She will need to follow up on an outpatient basis with her GI physician, Dr. Orosco, for followup colonoscopy in the next few weeks. We will not plan on any endoscopic investigations at this time. Thank you for the consultation. Please call at anytime with questions or concerns. Job ID: [id number]
[2018-06-29] MEDS: Simvastatin 20 MG TAB PO SCH (20:44)
[2018-06-29] MEDS: Dicyclomine 10 MG CAP PO PRN (20:45)
[2018-06-29] MEDS: Mirtazapine 30 MG Soltab PO SCH (20:45)
[2018-06-30] MEDS: metroNIDAZOLE 250 MG in Admixture Fee 1 EACH IVPB SCH ×3 (01:57→18:06)
[2018-06-30] MEDS: Lactated Ringer's 1,000 ML IV SCH (04:15)
--- NOTE | 2018-06-30 05:18 | PDOC.FM ---
- Subjective Subjective: Pt reports abdominal pain is improved, however she still has some abdominal pain and cramping. She tolerated 25 % full liquids yesterday. Has not had a BM since yesterday morning. - Objective Vital Signs & Weight: Vital Signs (12 hours) Temp Pulse Resp BP Pulse Ox 06/30/18 04:15 99.3 F 62 20 141/87 H 93 L 06/29/18 23:10 98.9 F 61 18 129/58 L 93 L 06/29/18 19:59 97.4 F L 60 18 146/65 H 94 L Weight Weight 73.437 kg I&O: 06/28/18 06/29/18 06/30/18 06:59 06:59 06:59 Intake Total 1540 1875 Output Total 325 1125 Balance 1215 750 Result Diagrams: 06/29/18 04:20 06/29/18 04:20 Phys Exam - Physical Examination Constitutional: NAD Respiratory: no wheezing, clear to auscultation bilateral Cardiovascular: RRR 3/6 systolic murmur Gastrointestinal: soft, positive bowel sounds diffusely tender to palpation, with some guarding Musculoskeletal: no edema, pulses present Neurological: non-focal, moves all 4 limbs Psychiatric: normal affect Skin: normal turgor Dx/Plan (1) Colitis Code(s): K52.9 - NONINFECTIVE GASTROENTERITIS AND COLITIS, UNSPECIFIED Status : Acute (2) Mild dehydration Code(s): E86.0 - DEHYDRATION Status: Acute (3) Hyperlipidemia Code(s): E78.5 - HYPERLIPIDEMIA, UNSPECIFIED Status: Chronic (4) Hypertension Code(s): I10 - ESSENTIAL (PRIMARY) HYPERTENSION Status: Chronic (5) Diverticulitis Code(s): K57.92 - DVTRCLI OF INTEST, PART UNSP, W/O PERF OR ABSCESS W/O BLEED Status: Chronic (6) GERD (gastroesophageal reflux disease) Code(s): K21.9 - GASTRO-ESOPHAGEAL REFLUX DISEASE WITHOUT ESOPHAGITIS Status: Chronic - Plan Plan: This is a 77 yo female with a PMH of HTN, HLD Colitis with diarrhea, suspected ischemic colitis -CT shows diffuse colitis -Flagyl and Cipro -Pending stool studies - not collected as patient has not had a BM since yesterday AM -Advance diet as tolerated -May discharge if patient is able to tolerate diet -Follow up for colonoscopy with Dr. Orosco outpatient Mild dehydration -Resolved HTN -continue home meds HLD -home meds GERD -home meds Addendum - Attending - Attending Attestation Date/Time: 06/30/18 8426 I personally evaluated the patient and discussed the management with Dr. Khan. I agree with the History, Examination, Assessment and Plan documented above with any addition or exceptions noted below. Patient reports feeling somewhat improved. GI evaluated yesterday and has no further interventions planned. Will see if she tolerates diet this morning and likely d/c home later today if so.
[2018-06-30] MEDS: Triamterene/Hydrochlorothiazide 37.5 mg/25 mg Tablet PO PRN (05:20)
[2018-06-30] MEDS: Diclofenac Sodium 50 MG DR TAB PO SCH (09:46)
[2018-06-30] MEDS: Atenolol 25 MG TAB PO SCH (09:47)
[2018-06-30] MEDS: Amlodipine 10 MG TAB PO SCH (09:47)
[2018-06-30] MEDS: Oxybutynin ER 5 MG TAB PO SCH (09:48)
[2018-06-30] MEDS: hydrALAZINE 25 MG TAB PO SCH (09:48)
[2018-06-30] MEDS: Dicyclomine 10 MG CAP PO PRN (09:51)
--- NOTE | 2018-06-30 19:08 | PRG ---
DATE OF SERVICE: 06/30/2018 SUBJECTIVE: Ms. Solomon is doing okay today, reports no significant change in symptoms. She still has waxing and waning abdominal pain, primarily on the left side, responsive to pain medications. She has had two bowel movements today, which both were still bloody. She is tolerating her regular low-salt diet; however. She remains clinically stable. OBJECTIVE: VITAL SIGNS: Temperature 98.5, pulse 56, blood pressure 114/52, and 92% oxygen saturation on room air. GENERAL: No acute distress. HEART: Regular rate and rhythm. LUNGS: Clear to auscultation bilaterally. ABDOMEN: Some tenderness to palpation on the left side of the abdomen as well as the right upper quadrant, but no guarding or rebound tenderness. EXTREMITIES: No peripheral edema. LABORATORY STUDIES: No new labs today. ASSESSMENT AND PLAN: 1. Left-sided colitis, still suspect ischemic colitis, clinically stable. 2. Hematochezia, not yet resolved, secondary to left-sided colitis. Overall, my impression has not changed. I still suspect this represents acute ischemic colitis. Expect continued symptomatic improvement. Symptoms usually resolve over the course of 5 to 7 days. I do note stool studies are negative for Clostridium difficile negative for Campylobacter and shiga toxin, with elevated fecal lactoferrin as suspected. Continue current supportive care for now. Antimicrobial therapy could be discontinued on hospital discharge. No barriers to hospital discharge from a GI perspective once the patient's symptoms are well controlled. Stick with the plan to follow up on an outpatient basis with her GI physician, Dr. Orosco for followup colonoscopy in the next few weeks. Job ID: [id number]
[2018-06-30] MEDS: Mirtazapine 30 MG Soltab PO SCH (20:53)
[2018-06-30] MEDS: Simvastatin 20 MG TAB PO SCH (20:53)
[2018-07-01] MEDS: hydrALAZINE 25 MG TAB PO SCH ×2 (00:49→08:25)
[2018-07-01] MEDS: metroNIDAZOLE 250 MG in Admixture Fee 1 EACH IVPB SCH (02:01)
--- NOTE | 2018-07-01 06:32 | PDOC.FM ---
- Subjective Subjective: Patient had bloody bowel movements yesterday. Reports her abdominal pain is much improved. She has been able to eat some, however she has not been enjoying her food due to the salt restricted diet. - Objective Vital Signs & Weight: Vital Signs (12 hours) Temp Pulse Resp BP Pulse Ox 07/01/18 03:00 98.4 F 60 16 143/64 H 97 07/01/18 00:49 51 L 07/01/18 00:00 98.2 F 51 L 12 124/56 L 95 06/30/18 19:48 99.4 F 57 L 12 118/56 L 93 L Weight Weight 74.843 kg I&O: 06/29/18 06/30/18 07/01/18 06:59 06:59 06:59 Intake Total 1540 3450 1655 Output Total 325 1450 1950 Balance 1215 1999 -295 Result Diagrams: 07/01/18 04:43 06/29/18 04:20 Phys Exam - Physical Examination Constitutional: NAD Respiratory: no wheezing, clear to auscultation bilateral Cardiovascular: RRR 2/6 systolic murmur Gastrointestinal: soft, no distention, positive bowel sounds minimal guarding, improved from yesterday Musculoskeletal: pulses present mild edema Neurological: non-focal, moves all 4 limbs Psychiatric: normal affect Skin: normal turgor, cap refill <2 seconds Dx/Plan (1) Colitis Code(s): K52.9 - NONINFECTIVE GASTROENTERITIS AND COLITIS, UNSPECIFIED Status : Acute (2) Mild dehydration Code(s): E86.0 - DEHYDRATION Status: Acute (3) Hyperlipidemia Code(s): E78.5 - HYPERLIPIDEMIA, UNSPECIFIED Status: Chronic (4) Hypertension Code(s): I10 - ESSENTIAL (PRIMARY) HYPERTENSION Status: Chronic (5) Diverticulitis Code(s): K57.92 - DVTRCLI OF INTEST, PART UNSP, W/O PERF OR ABSCESS W/O BLEED Status: Chronic (6) GERD (gastroesophageal reflux disease) Code(s): K21.9 - GASTRO-ESOPHAGEAL REFLUX DISEASE WITHOUT ESOPHAGITIS Status: Chronic - Plan Plan: This is a 77 yo female with a PMH of HTN, HLD Colitis with diarrhea, suspected acute ischemic colitis -Pain improved today -CT shows diffuse colitis -Flagyl and Cipro discontinued -Stool studies negative for cdif, campylobacter, shigatoxin; +blood and elevated lactoferrin -Advance diet as tolerated -Follow up for colonoscopy with Dr. Orosco outpatient Mild dehydration -Resolved HTN -continue home meds HLD -home meds GERD -home meds Dispo: plan to dc to home if able to tolerate her diet this AM Addendum - Attending - Attending Attestation Date/Time: 07/01/18 6000 I personally evaluated the patient and discussed the management with Dr. Khan. I agree with the History, Examination, Assessment and Plan documented above with any addition or exceptions noted below. Patient improved today for suspected ischemic colitis. GI has evaluated and does not see the need for more interventions. If tolerates diet well today, will d/c home with plans to follow up with GI outpt. Stool cultures negative. Blood in stool 2/2 colitis, counts stable.
[2018-07-01 06:35] LABS: #Eosinphils 0.2 thou/uL (0.0-0.7); #Lymphocytes 1.4 thou/uL (1.20-3.40); #Monocytes 0.8 thou/uL (0.11-0.59); #Neutrophils 6.4 thou/uL (1.40-6.50); %Basophils 0.4 % (0.0-1.0); %Eosinophils 2.7 % (0.0-10.0); %Lymphocytes 15.5 % (21.0-51.0); %Monocytes 9.3 % (0.0-10.0); %Neutrophils 72.1 % (42.0-75.0); Hemoglobin 10.5 g/dL (12.0-16.0); Mean Corpuscular HGB CONC 33.9 g/dL (32.0-36.0); Mean Corpuscular Hemoglobin 30.6 pg (27.0-31.0); Mean Corpuscular Volume 90.4 fL (78.0-98.0); Mean Platelet Volume 8.6 fL (7.4-10.4); Platelet Count 155 thou/uL (130-400); RBC Distribution Width 11.8 % (11.5-14.5); Red Blood Cell (RBC) Count 3.42 mill/uL (4.20-5.40); White Blood Cell (WBC) Count 8.8 thou/uL (4.8-10.8)
[2018-07-01] MEDS: Atenolol 25 MG TAB PO SCH (08:24)
[2018-07-01] MEDS: Triamterene/Hydrochlorothiazide 37.5 mg/25 mg Tablet PO PRN (08:25)
[2018-07-01] MEDS: Amlodipine 10 MG TAB PO SCH (08:25)
[2018-07-01] MEDS: Oxybutynin ER 5 MG TAB PO SCH (08:26)
[2018-07-01] MEDS: Diclofenac Sodium 50 MG DR TAB PO SCH (08:26)
[2018-07-01 08:43] VITALS: BP 122/55; TEMP 98.2
--- NOTE | 2018-07-01 10:48 | PRG ---
DATE OF SERVICE: 07/01/2018 SUBJECTIVE: Ms. Solomon says she is feeling even better today. She still has some lower abdominal discomfort. She had one bowel movement with a little bit of blood this morning, but this also seems to be clearing up. She is tolerating her regular diet well with no issues. OBJECTIVE: VITAL SIGNS: Temperature 98.2, pulse 51, blood pressure 122/55, and 95% oxygen saturation on room air. GENERAL: No acute distress. HEART: Regular rate and rhythm. LUNGS: Clear to auscultation bilaterally. ABDOMEN: Bowel sounds present. Soft. Some mild tenderness to palpation in the lower abdomen. No guarding or rebound tenderness. EXTREMITIES: No peripheral edema. LABORATORY STUDIES: WBC down to 8.8, hemoglobin 10.5, and platelets 155. ASSESSMENT AND PLAN: 1. Left-sided colitis, likely ischemic colitis, clinically improving. 2. Hematochezia, appears to be resolving, secondary to left-sided colitis. Expect continued symptomatic improvement. The patient is advancing her diet well. No barriers to hospital discharge from a GI perspective. Stick with the plan to follow up on an outpatient basis with her GI physician, Dr. Orosco, for followup colonoscopy in the next few weeks. Job ID: [id number]
--- NOTE | 2018-07-03 02:11 | DIS ---
DATE OF ADMISSION: 06/28/2018 DATE OF DISCHARGE: 07/01/2018 RESIDENT: Cece Khan MD ADMITTING ATTENDING: Silvio Oates MD DISCHARGE ATTENDING: Edy Genao MD CONSULTS: Gastroenterology, Dr. Danielle, 06/28/2018. PROCEDURES PERFORMED: Abdomen and pelvis CT, 06/28/2018. Impression: Diffuse mural thickening and surrounding inflammatory change involving the transverse colon and left colon. Findings indicate diffuse colitis. There is diverticulosis of the sigmoid colon without evidence of diverticular abscess or extraluminal gas. Cholelithiasis is again noted. Exophytic necrotic fibroid from the uterine fundus again noted. PRIMARY DIAGNOSES: 1. Acute ischemic colitis with diarrhea, improving. 2. Mild dehydration, resolved. SECONDARY DIAGNOSES: 1. Hypertension. 2. Hyperlipidemia. 3. Gastroesophageal reflux disease. DISCHARGE MEDICATIONS: 1. Bentyl 10 mg p.o. q.6 hours p.r.n. for abdominal pain or discomfort. 2. Nexium 40 mg p.o. daily. 3. Hydralazine 25 mg p.o. b.i.d. 4. Amlodipine besylate/benazepril one cap p.o. daily. 5. Atenolol 50 mg p.o. daily. 6. Clopidogrel 75 mg p.o. daily. 7. Oxybutynin 10 mg p.o. daily. 8. Voltaren 50 mg p.o. daily. 9. Triamterene hydrochlorothiazide 37.5-25 one cap p.o. p.r.n. for fluid retention. 10. Benadryl 25 mg p.o. q.6 hours p.r.n. for allergies. 11. Famotidine 40 mg p.o. daily. 12. Simvastatin 20 mg p.o. every morning. DISCONTINUED MEDICATIONS: Mirtazapine 30 mg p.o. at bedtime. HISTORY OF PRESENT ILLNESS/HOSPITAL COURSE: A 77-year-old female presented to the ER with chief complaint of bright red blood per rectum that started earlier that day. She stated that the character of her stool was like strawberry paste. She states that she had diarrhea, but has had long-standing constipation. She reported severe abdominal pain that had been intermittent. Nothing made it better or worse. She described the pain as sharp and it feels like when she takes too much laxative "it starts to cramp." She states that the pain is diffuse and not worse in one area more than another. She reports about 3 to 4 episodes of nausea and vomiting throughout the day. She reported cough that was productive of green yellow sputum for the past week. She reported fever and chills throughout the day as well. Denies any urinary complaints. No previous history of GI issues besides chronic constipation. The patient had a colonoscopy 7 years ago that was normal to her knowledge. The patient was given 500 mg of Flagyl IV in the ED. CT was done, which showed diffuse colitis. The patient was continued on Flagyl and Cipro. Stool studies were done and were negative for C diff, Campylobacter and shiga toxin. They were positive for blood and elevated lactoferrin. Dr. Danielle was consulted from GI. He evaluated the patient. It is likely a left-sided colitis, likely ischemic colitis that was clinically improving before discharge. The patient was advancing her diet well. The patient plans to follow up with her GI physician, Dr. Orosco, for followup with colonoscopy in the next few weeks. The patient's antibiotics were discontinued on discharge. The patient had mild dehydration on admission that resolved prior to discharge. The patient was continued on her home medications with hypertension, hyperlipidemia , and GERD. The patient had not been taking home mirtazapine for 1 month and was given the medication once during her hospital stay. She reports the medication made her feel weak and shaky. The medication was discontinued. DISPOSITION: Stable. DISCHARGE INSTRUCTIONS: 1. Location: Home. 2. Diet: Heart healthy. 3. Activity: As tolerated. 4. Followup: Follow up with Dr. Orosco in the next few weeks for colonoscopy. Follow up with PCP, Dr. Mando Velasquez, within 1 week. Job ID: [id number] [facility]
--- NOTE | 2018-07-04 14:40 | EKG ---
Test Reason : STAT Blood Pressure : / mmHG Vent. Rate : 078 BPM Atrial Rate : 078 BPM P-R Int : 158 ms QRS Dur : 146 ms QT Int : 420 ms P-R-T Axes : 072 -41 117 degrees QTc Int : 478 ms Sinus rhythm with Possible Premature atrial complexes with Abberant conduction Left axis deviation Left bundle branch block Abnormal ECG Confirmed by NIKHIL PATHAK ([id number]) on 07/04/2018 2:39:52 PM Referred By: PRESTON Confirmed By:NIKHIL PATHAK
== END 2018-07-01 13:51 | disposition home or self-care (01) ==
LOC: ERS 14:44 → 2SW 17:20
PROVIDERS: ADMIT Emergency Medicine; ATTEND Emergency Medicine
DX: K52.89 Other specified noninfective gastroenteritis and colitis (principal); K59.09 Other constipation; K57.30 Diverticulosis of large intestine without perforation or abscess without bleeding; K80.10 Calculus of gallbladder with chronic cholecystitis without obstruction; I10 Essential (primary) hypertension; E78.5 Hyperlipidemia, unspecified; M19.90 Unspecified osteoarthritis, unspecified site; I25.10 Atherosclerotic heart disease of native coronary artery without angina pectoris; K21.9 Gastro-esophageal reflux disease without esophagitis; E86.0 Dehydration; Z87.891 Personal history of nicotine dependence; Z88.0 Allergy status to penicillin; Z88.1 Allergy status to other antibiotic agents; Z88.5 Allergy status to narcotic agent; Z79.899 Other long term (current) drug therapy; Z97.4 Presence of external hearing-aid; Z95.5 Presence of coronary angioplasty implant and graft
CPT/HCPCS: 74177; 80048; 80053; 81001; 82274; 83630; 84145; 85025 ×3; 85610; 85730; 86850; 86900; 86901; 87015; 87045; 87046; 87206; 87324; 87449 ×2; 87899 ×2; 93005; 96361 ×3; 96365; 96366 ×3; 96367; 99285; G0378 ×3; 36415; 93010; J0744; Q0163; Q9966

== ENCOUNTER 2018-11-20 15:06 | Outpatient (CLI) | payer MEDICARE ==
[2018-11-20 16:53] LABS: Mean Corpuscular HGB CONC 34.4 g/dL (32.0-36.0); Mean Corpuscular Hemoglobin 30.3 pg (27.0-31.0); Mean Corpuscular Volume 88.2 fL (78.0-98.0); Platelet Count 164 thou/uL (130-400); RBC Distribution Width 12.2 % (11.5-14.5); White Blood Cell (WBC) Count 5.7 thou/uL (4.8-10.8)
[2018-11-20 17:18] LABS: Anion Gap 12 mmol/L (10-20); BUN (Urea Nitrogen) 18 mg/dL (9.8-20.1); Calc. Creatinine Clearance 0 mL/min (70-130); Calcium 9.3 mg/dL (7.8-10.44); Carbon Dioxide 25 mmol/L (23-31); Chloride 104 mmol/L (98-107); Estimated GFR-MDRD 60; Glucose 112 mg/dL (83-110); Potassium 4.2 mmol/L (3.5-5.1); Sodium 137 mmol/L (136-145)
--- NOTE | 2018-11-21 20:02 | EKG ---
Test Reason : Blood Pressure : / mmHG Vent. Rate : 054 BPM Atrial Rate : 054 BPM P-R Int : 188 ms QRS Dur : 156 ms QT Int : 484 ms P-R-T Axes : 078 004 098 degrees QTc Int : 458 ms Sinus bradycardia Left bundle branch block Abnormal ECG When compared with ECG of 28-JUN-2018 19:56, Abberant conduction is no longer Present Nonspecific T wave abnormality has replaced inverted T waves in Lateral leads Confirmed by MAKSIM HALEY, SEstuardo ([id number]) on 11/21/2018 8:01:57 PM Referred By: SASKIA Confirmed By:DR. Kee SCHAEFFER MD
== END 2018-11-20 15:07 | disposition home or self-care (01) ==
LOC: LABBT 15:06
PROVIDERS: ATTEND Neurological Surgery
DX: Z01.818 Encounter for other preprocedural examination (principal); M48.061 Spinal stenosis, lumbar region without neurogenic claudication
CPT/HCPCS: 80048; 85027; 93005; 93010

== ENCOUNTER 2018-11-28 05:44 | Day surgery (SDC) | payer MEDICARE ==
[2018-11-20 15:23] VITALS: BMI 32.9
--- NOTE | 2018-11-27 15:54 | HP ---
HISTORY OF PRESENT ILLNESS: Ms. Solomon is a 78-year-old woman, here today to discuss lower back pain, bilateral hip pain, and severe claudication symptoms, which have been present for many years, but has progressed to a point where now she feels she needs to be evaluated for surgical discussion. She did have epidural steroid injections back in 2017, which resulted only mild and short-term relief, but other than that, has not had any specific formal directed treatment. MRI from [facility] reveals severe central canal stenosis at L4-L5 with early grade 1 spondylolisthesis that certainly could fit the symptoms that she is experiencing. PAST MEDICAL HISTORY: Significant for hyperlipidemia, coronary arterial disease, hypertension, and anxiety. CURRENT MEDICATIONS: 1. Clopidogrel. 2. Triamterene. 3. Hydrochlorothiazide. 4. Diclofenac. 5. Nexium. 6. Aspirin. 7. Venlafaxine. 8. Hydralazine. 9. Atenolol. 10. Amlodipine. 11. Dinitrate. 12. Simvastatin. ALLERGIES: NO KNOWN DRUG ALLERGIES. PAST SURGICAL HISTORY: Unlisted. PHYSICAL EXAMINATION: The patient is alert and oriented x3. Gait is severely antalgic and slowed. Lower extremity motor exam is normal. She does have a positive bilateral straight leg raise. ASSESSMENT: 1. Lumbar radiculopathy. 2. Neurogenic claudication. 3. Spinal stenosis. PLAN: Dr. Claire met with the patient, reviewed imaging, advocated for an L4-L5 decompression. He explained to the patient the risks, benefits, and alternatives to the procedure. The patient expressed understanding and elected to move forward with surgery as discussed. I do believe the patient is mentally competent and capable of making medical decisions for herself. We will move forward with surgery as planned. Job ID: [id number]
[2018-11-28] MEDS ORDERED: Thrombin 5000 UNITS/5 ML VIAL ONE (06:12)
[2018-11-28] MEDS ORDERED: Bupivacaine HCl 0.5%/Epinephrine 1:200,000/PF 30 ml Vial ONE (06:12)
[2018-11-28] MEDS ORDERED: Levofloxacin 500 mg/D5W 100 ml Premix Bag ONE (06:23)
[2018-11-28] MEDS ORDERED: Clindamycin/D5W 900 mg/50 ml Premix Bag ONE (06:24)
[2018-11-28] MEDS ORDERED: Fentanyl 100 MCG/2 ML VIAL ONE ×3 (06:49→09:00)
[2018-11-28] MEDS ORDERED: SUGAMMADEX SODIUM 200 MG/2 ML VIAL ONE (08:25)
[2018-11-28] MEDS ORDERED: Morphine 4 MG/ML VIAL ONE (09:17)
[2018-11-28] MEDS ORDERED: Ondansetron ODT 4 MG TAB ONE (11:10)
[2018-11-28] MEDS ORDERED: HYDROcodone/Acetaminophen 5/325 mg Tablet ONE ×2 (11:11→13:12)
--- NOTE | 2018-11-28 12:31 | OP ---
DATE OF PROCEDURE: 11/28/2018 CRITICAL CARE NURSE: Giorgio Hatch PA-C INDICATION: Pain. DIAGNOSIS: Lateral recess stenosis with underlying radiculopathy. PROCEDURE PERFORMED: Bilateral L4-L5 decompression. ANESTHESIA: General. DESCRIPTION OF PROCEDURE: The patient was brought into the operating room and placed under general anesthesia. She was flipped from the supine to prone position on the operating room table. A linear incision was planned over L4-L5. After prepping and draping and after an appropriate operative pause, the incision was created. The soft tissues were swept away from midline. Self-retaining retractors were placed in the wound for optimal exposure. After confirming the appropriate level with C-arm fluoroscopy, high-speed cutting drill bit as well as 2 and 3 mm Kerrisons was used to perform a laminectomy bilaterally at L4-L5 in order to decompress the lateral aspect of the recesses. At the completion of procedure, the descending L5 nerve roots were both decompressed. The wound was then irrigated. Hemostasis was maintained throughout. The wound was then closed in anatomic layers, and a pressure dressing was applied. There were no known procedural complications. Job ID: [id number]
== END 2018-11-28 14:30 | disposition home or self-care (01) ==
LOC: SDC 05:44
PROVIDERS: ATTEND Neurological Surgery
PROC: 01NB0ZZ Release Lumbar Nerve, Open Approach (ICD-10-PCS; principal; 2018-11-28)
DX: M48.062 Spinal stenosis, lumbar region with neurogenic claudication (principal); M43.16 Spondylolisthesis, lumbar region; M54.16 Radiculopathy, lumbar region; I25.10 Atherosclerotic heart disease of native coronary artery without angina pectoris; I10 Essential (primary) hypertension; E78.5 Hyperlipidemia, unspecified; K21.9 Gastro-esophageal reflux disease without esophagitis; M19.90 Unspecified osteoarthritis, unspecified site; M81.0 Age-related osteoporosis without current pathological fracture; F41.9 Anxiety disorder, unspecified; Z79.02 Long term (current) use of antithrombotics/antiplatelets; Z79.82 Long term (current) use of aspirin; Z79.899 Other long term (current) drug therapy; Z88.0 Allergy status to penicillin; Z88.2 Allergy status to sulfonamides; Z88.8 Allergy status to other drugs, medicaments and biological substances
CPT/HCPCS: 76000; J0670; J1956; J2270; J3010; J3490; Q0162

== ENCOUNTER 2019-03-21 16:14 | Outpatient (CLI) | payer MEDICARE ==
--- NOTE | 2019-03-21 17:15 | RAD ---
EXAM: XR Lumbar Spine 2 Or 3 View PROVIDED CLINICAL HISTORY: Low back pain. COMPARISON: 06/22/2018 FINDINGS: The vertebral body heights are within normal limits. Minimal scattered osteophytes are seen. Facet de generative change seen in the lower lumbar spine. There is osteopenia. There is trace grade 1 anterolisthesis of L4 on L5 measuring 4 mm on flexion which is not seen on extension view. No additio nal level of subluxation is seen. There is angulation involving the lower sacrum, but this is a stable finding compared to study in 2019. Vascular calcifications are again seen in the abdominal aorta and involving the iliac arteries. IMPRESSION: 1. Trace grade 1 anterolisthesis of L4 on L5 on flexion which corrects on extension. 2. Osteopenia.
== END 2019-03-21 16:15 | disposition home or self-care (01) ==
LOC: SCSRAD 16:14
PROVIDERS: ATTEND Neurological Surgery
DX: M54.5 Low back pain (principal); M43.16 Spondylolisthesis, lumbar region; M85.88 Other specified disorders of bone density and structure, other site
CPT/HCPCS: 72100